=== PATIENT | male | born 1940 | race Caucasian/White ===

== ENCOUNTER → 2016-09-09 | Outpatient (CLI) | payer OTHER ==
[2016-09-09 08:44] LABS: BASOPHILS # (AUTO) 0.03 10*3/UL; BASOPHILS % (AUTO) 0.6 % (0-1); HEMATOCRIT 39.2 % (42.0-52.0); HEMOGLOBIN 13.8 g/dL (14.0-18.0); IMM GRAN % (AUTO) 0.2 % (0-5); IMM GRAN# (AUTO) 0.01 10*3/UL; LYMPHOCYTES # (AUTO) 2.21 10*3/uL; LYMPHOCYTES % (AUTO) 40.6 % (10-50); MEAN CORPUSCULAR HEMOGLOBIN 32.8 PG (27-31); MEAN CORPUSCULAR HGB CONC 35.2 g/dL (33-37); MEAN PLATELET VOLUME 9.7 FL (7.4-12.2); MONOCYTES % (AUTO) 7.3 % (5-15); NEUTROPHILS # (AUTO) 2.53 10*3/UL; NEUTROPHILS % (AUTO) 46.3 % (50-80); RED BLOOD COUNT 4.21 10^6/uL (4.70-6.10); WHITE BLOOD COUNT 5.45 10^3/uL (4.8-10.8)
[2016-09-09 09:02] LABS: BLOOD UREA NITROGEN 21 mg/dL (7-22); BUN/CREATININE RATIO 11.66 (6-20); CALCIUM 9.1 mg/dL (8.7-10.7); CHLORIDE 108 meq/L (98-112); CREATININE 1.8 mg/dL (0.70-1.50); GLUCOSE 101 mg/dL (78-110); POTASSIUM 4.2 meq/L (3.8-5.2); SODIUM 142 meq/L (135-145)
[2016-09-09 09:03] LABS: PLATELET MORPHOLOGY COMMENT NORMAL MORPHOLOGY (NORM)
[2016-09-09 09:12] LABS: HEMOGLOBIN A1C 5.79 % (4.2-6.0); MEAN BLOOD GLUCOSE (CALC) 106.807 mg/dL
[2016-09-09 09:24] LABS: CREATININE, URINE 161.2 MG/DL (15-500)
== END ==
LOC: LAB 08:18
PROVIDERS: ATTEND Internal Medicine
DX: E11.9 Type 2 diabetes mellitus without complications (principal); E11.21 Type 2 diabetes mellitus with diabetic nephropathy; G47.33 Obstructive sleep apnea (adult) (pediatric)
CPT/HCPCS: 36415; 80048; 82043; 83036; 85025

== ENCOUNTER → 2016-09-12 | Outpatient (CLI) | payer OTHER | LOC: MMPC 11:11 | PROVIDERS: ATTEND Internal Medicine | DX: E11.9 Type 2 diabetes mellitus without complications (principal); E78.5 Hyperlipidemia, unspecified; D64.9 Anemia, unspecified; I10 Essential (primary) hypertension; E66.9 Obesity, unspecified; R74.8 Abnormal levels of other serum enzymes | CPT/HCPCS: 90732; 99214; G0463 ==

== ENCOUNTER → 2017-03-06 | Outpatient (CLI) | payer OTHER ==
[2017-03-06 10:29] LABS: HEMOGLOBIN A1C 5.33 % (4.2-6.0)
[2017-03-06 10:30] LABS: CHOL/HDL RATIO 2.84 RATIO (0-4.0); LDL CHOLESTEROL,CALCULATED 42.2 mg/dL
[2017-03-06 11:19] LABS: BLOOD UREA NITROGEN 22 mg/dL (7-22); BUN/CREATININE RATIO 12.22 (6-20); CALCIUM 9.2 mg/dL (8.7-10.7); SERUM ALBUMIN 3.9 g/dL (3.5-4.8)
[2017-03-06 11:52] LABS: CREATININE, URINE 193.2 MG/DL (15-500)
== END ==
LOC: LAB 09:55
PROVIDERS: ATTEND Internal Medicine
DX: E11.9 Type 2 diabetes mellitus without complications (principal); E78.5 Hyperlipidemia, unspecified; I10 Essential (primary) hypertension
CPT/HCPCS: 36415; 80053; 80061; 82043; 82550; 83036

== ENCOUNTER 2017-03-07 12:15 | Emergency (ER) | payer OTHER ==
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
[2017-03-07] MEDS ORDERED: DIPH,PERTUSS,TET(ADACEL) VAC/PF 0.5 ML (Tdap) IM ONE (12:51)
[2017-03-07] MEDS ORDERED: BACITRACIN 0.9 GM PACKET OINT TOPICAL ONE (13:28)
[2017-03-07 15:34] VITALS: RESP 21; TEMP 98
--- NOTE | 2017-03-07 16:04 | DI ---
LEFT WRIST, 03/07/2017 3:31 PM: Clinical History: Left wrist pain. Previous Exam: None at this facility. AP and lateral views are submitted. There is no acute soft tissue, osseous, or joint abnormality. No fractures are identified. 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 Reading: There is no acute fracture or dislocation. 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
[2017-03-07 16:49] LABS: HEMATOCRIT 40.2 % (42.0-52.0); HEMOGLOBIN 13.8 g/dL (14.0-18.0); MEAN CORPUSCULAR HEMOGLOBIN 32.4 PG (27-31); MEAN CORPUSCULAR HGB CONC 34.3 g/dL (33-37); MEAN CORPUSCULAR VOLUME 94.4 FL (80-90); MEAN PLATELET VOLUME 9.9 FL (7.4-12.2); RED BLOOD COUNT 4.26 10^6/uL (4.70-6.10)
[2017-03-07] MEDS ORDERED: Sodium Chloride 0.9% 1,000 ML PRIMARY IV ONE (16:51)
[2017-03-07 16:53] LABS: BLOOD UREA NITROGEN 26 mg/dL (7-22); CALCIUM 9.2 mg/dL (8.7-10.7)
[2017-03-07] MEDS ORDERED: Sodium Chloride 0.9% 1,000 ML ONE (17:28)
--- NOTE | 2017-03-07 18:09 | DI ---
CT HEAD SCAN WITHOUT IV CONTRAST, 03/07/2017 4:22 PM : Clinical History: Dizziness after falling. Previous Exam: None at this facility. Scans are obtained from the foramen magnum to the vertex without IV contrast. The 4th, 3rd, and lateral ventricles are of normal size, shape, position, and contour for the patient 's age. There are no abnormal areas of increased or decreased density. Specifically, there is no evid ence of an acute intracranial hemorrhagic focus. There is moderate cerebellar and cerebral atrophy. T here are no extracerebral mantles or shift of the midline structures. Bone window evaluation is myra l. The paranasal sinuses are normal. READIN. There is no evidence of an acute intracranial hemorrhagic focus. 2. Moderate cerebellar and cerebral atrophy.
== END 2017-03-07 13:17 | disposition home or self-care (01) ==
LOC: ER 12:15
DX: S41.111A Laceration without foreign body of right upper arm, initial encounter (principal); S80.211A Abrasion, right knee, initial encounter; S60.222A Contusion of left hand, initial encounter; R42 Dizziness and giddiness; M25.532 Pain in left wrist; V03.00XA Pedestrian on foot injured in collision with car, pick-up truck or van in nontraffic accident, initial encounter
CPT/HCPCS: 70450; 73100; 80048; 85027; 90471; 90715; 96360; 99283; J7030

== ENCOUNTER → 2017-03-08 | Outpatient (CLI) | payer OTHER | LOC: MMPC 11:11 | PROVIDERS: ATTEND Internal Medicine | DX: E11.9 Type 2 diabetes mellitus without complications (principal); I10 Essential (primary) hypertension; D64.9 Anemia, unspecified; E66.9 Obesity, unspecified; R74.8 Abnormal levels of other serum enzymes | CPT/HCPCS: 99214; G0463 ==